=== PATIENT | female | born 1935 | race Caucasian/White ===

== ENCOUNTER → 2016-08-20 | Outpatient (CLI) | payer MEDICARE, OTHER ==
[2014-03-14 11:38] VITALS: BP 115/78
[~2016-08-20] MED LIST: AMLO10TA2 PO; ATEN50TA PO; BENA1TAB6 PO; CLON0.2T PO; CYAN10002 IJ; CYAN10005 PO; DOCU-27 PO; HYDR-2762 PO; ONDA8TAB9 PO; VIT1CAPS11 PO
--- NOTE | 2016-08-20 10:24 | RAD ---
EXAM: Dual modality PET/CT. HISTORY: Lung cancer restaging. TECHNIQUE: PET images of the body from the skull base to the proximal thighs were obtained approximately 60 minutes following the intravenous administration of 13.18 mCi F-[address] images were obtained for attenuation correction purposes. The blood glucose level prior to contrast administration was 76 mg/dl. One or more of the following individualized dose reduction techniques were utilized for this examination: 1. Automated exposure control. 2. Adjustment of the mA and/or kV according to patient size. 3. Use of iterative reconstruction technique. COMPARISON: 02/20/2016. FINDINGS: There is mild increased radiotracer activity within maximum SUV of 2.9 within the right suprahilar bandlike consolidation containing air bronchograms, stable compared to the prior study. There is increased radiotracer activity with a maximum SUV of 6.6 within a 1.5 cm right thyroid nodule, previously demonstrating a maximum SUV of 6.2. There is increased tracer tracer activity within the right shoulder girdle musculature, likely physiologic given the absence of a CT correlate. There is physiologic activity within the bowel and renal collecting system. The CT portion of the exam demonstrates stable right suprahilar bandlike consolidation containing air bronchograms. There is stable linear scarring within the lateral left upper lobe. There is a stable 2 mm pleural-based nodular opacity within the right upper lobe. There is emphysema. There is no pneumothorax or pleural effusion. There is cardiomegaly with coronary artery atherosclerosis and calcification of the aortic valve. No pathologically enlarged lymph node is seen. There is an enlarged thyroid and 1.5 cm right thyroid nodule. There is cerebral volume loss with compensatory enlargement of the ventricles and evidence of chronic small vessel disease within the cerebral white matter. There is severe mucosal thickening involving the sphenoid sinus. There is an ectatic aortic arch. There is a small hiatal hernia. No hepatic lesion is seen. The gallbladder is unremarkable. There are a few pancreatic calcifications likely due to chronic pancreatitis. The spleen is unremarkable. No adrenal gland lesion is seen. There is a 2 cm hypodense lesion within the lower pole of the left kidney, likely a cyst. There is colonic diverticulosis without evidence of diverticulitis. There is no evidence of bowel obstruction. There is a tortuous atherosclerotic abdominal aorta and iliac bifurcation. There is a diverticulum along the right aspect of the urinary bladder. There are advanced degenerative changes throughout the spine. There is a sclerotic lesion within the left femoral intertrochanteric region, possibly due to a bone infarct. No new suspicious lytic or sclerotic osseous lesion is seen. IMPRESSION: 1. Stable mild increased radiotracer activity with a maximum SUV of 2.9 within right suprahilar bandlike consolidation containing air bronchograms. The stability and degree of right tracer activity favor post radiation change right than recurrent or residual neoplasm. Continued follow-up is indicated. 2. Slight interval increase in a radiotracer avid right thyroid nodule with a maximum SUV of 6.6. This can be better assessed sonographically. 3. Stable tiny pleural-based nodular and linear opacities within both lungs, likely benign. 4. Emphysema. 5. Cardiomegaly with coronary artery atherosclerosis and calcification of the aortic valve. 6. Pancreatic calcifications likely due to the sequela of chronic pancreatitis. 7. Hypodense lesion within the lower pole of the left kidney, likely a cyst. 8. Colonic diverticulosis. 9. Please refer to the above report for additional findings regarding the non-PET portion of the exam.
== END | disposition home or self-care (01) ==
LOC: PETSC 07:30
PROVIDERS: ATTEND Internal Medicine Hematology & Oncology
DX: C34.10 Malignant neoplasm of upper lobe, unspecified bronchus or lung (principal); I25.10 Atherosclerotic heart disease of native coronary artery without angina pectoris; I70.0 Atherosclerosis of aorta; I51.7 Cardiomegaly; E04.9 Nontoxic goiter, unspecified; K44.9 Diaphragmatic hernia without obstruction or gangrene; J43.9 Emphysema, unspecified; L98.8 Other specified disorders of the skin and subcutaneous tissue; K57.30 Diverticulosis of large intestine without perforation or abscess without bleeding; K85.90 Acute pancreatitis without necrosis or infection, unspecified; N28.9 Disorder of kidney and ureter, unspecified
CPT/HCPCS: 78815; A9552

== ENCOUNTER → 2017-03-04 | Outpatient (CLI) | payer MEDICARE, OTHER ==
[2014-03-14 11:38] VITALS: BP 115/78
[~2017-03-04] MED LIST changes: +DOCU-109 PO; -DOCU-27 PO
--- NOTE | 2017-03-05 16:56 | RAD ---
EXAM: PET/CT SKULL BASE TO MID THIGH. HISTORY: Restaging right lung carcinoma status post completion of chemoradiation approximately 2 years ago. COMPARISON: Multiple prior PET/CT examinations with most recent generator 2016 and 02/20/2016.. TECHNIQUE: CT was performed from the skull base through the mid thighs for the purposes of attenuation correction. 14.1 mCi F-18 fluorodeoxyglucose (FDG) was administered intravenously. After an uptake period, positron emission tomography was performed from the skull base through the mid thighs. The PET and CT data were fused and interpreted in combination a dedicated workstation. Blood glucose level was 124 mg/dL at the time of FDG administration. Findings: Head/neck: There is a 1.0 cm hypodense nodule in the inferior right thyroid gland with persistent FDG activity with maximum SUV of 6.1, previously 6.2. No hypermetabolic lymphadenopathy in this region. Chest: Right upper lobe volume loss with right suprahilar consolidation and bronchiectasis with contiguous soft tissue extension into the right lex compatible with postradiation fibrosis which demonstrates mild low level FDG uptake with maximum SUV of 2.8, previously 2.9. No suspicious hypermetabolic mass or lymphadenopathy in this region. Abdomen and pelvis: There is physiologic activity in both kidneys and urinary bladder. There is patchy increased FDG uptake throughout the large bowel, may be physiologic. Musculoskeletal: No suspicious focal FDG uptake. Uncorrected PET images: No additional finding. Noncontrast low-dose CT findings: Coronary artery and aortic valve leaflet calcifications. Stable small right renal cysts. Tortuosity of the abdominal aorta with heavy aortoiliac calcified atheromatous disease with luminal patency not assessed due to lack of intravenous contrast. Moderate distal clonic diverticulosis without evidence for diverticulitis. Impression: 1. Unchanged low level metabolic activity within the right upper lobe consolidation compatible with postradiation fibrosis, though early recurrent neoplasm cannot be excluded. 2. Stable 1.0 cm right thyroid nodule with hypermetabolic activity, unchanged since 2013, indeterminate. Dedicated thyroid ultrasound is recommended, if not already performed. 3. No hypermetabolic lymphadenopathy in the neck, chest, abdomen or pelvis.
== END | disposition home or self-care (01) ==
LOC: PETSC 07:21
PROVIDERS: ATTEND Internal Medicine Hematology & Oncology
DX: C34.10 Malignant neoplasm of upper lobe, unspecified bronchus or lung (principal)
CPT/HCPCS: 78815; A9552

== ENCOUNTER → 2017-09-16 | Outpatient (CLI) | payer MEDICARE, OTHER | END | disposition home or self-care (01) | LOC: PETSC 07:21 | DX: C34.91 Malignant neoplasm of unspecified part of right bronchus or lung (principal); C54.1 Malignant neoplasm of endometrium; D64.9 Anemia, unspecified; K57.30 Diverticulosis of large intestine without perforation or abscess without bleeding | CPT/HCPCS: 78815; A9552 ==

== ENCOUNTER 2017-09-25 14:03 | Inpatient (IN) | payer MEDICARE, OTHER ==
[2017-09-25 15:55] LABS: ADD MAN DIFF? NO
[2017-09-25 16:02] LABS: BASO # 0.1 x10^3/uL (0.0-0.2); BASO % 1 % (0-3); EOS % 0 % (0-3); HEMATOCRIT 34.8 % (36.0-47.0); HEMOGLOBIN 11.7 g/dL (12.0-15.5); LYMPH # 0.9 x10^3/uL (1.0-4.8); LYMPH % 9 % (24-48); MEAN CORPUSCULAR HEMOGLOBIN 33 pg (25-35); MEAN CORPUSCULAR HGB CONC 34 g/dL (31-37); MEAN CORPUSCULAR VOLUME 98 fL (79-100); MONO # 0.7 x10^3/uL (0.0-1.1); MONO % 7 % (0-9); NEUT # 8.1 x10^3uL (1.8-7.7); NEUT % 83 % (31-73); PLATELET COUNT 227 x10^3/uL (140-400); RED BLOOD COUNT 3.56 x10^6/uL (3.50-5.40); RED CELL DISTRIBUTION WIDTH 13.3 % (11.5-14.5); WHITE BLOOD COUNT 9.7 x10^3/uL (4.0-11.0)
[2017-09-25 16:11] LABS: ANION GAP 12 (6-14); BLOOD UREA NITROGEN 35 mg/dL (7-20); BUN/CREATININE RATIO 25 (6-20); CALCIUM 9.5 mg/dL (8.5-10.1); CARBON DIOXIDE 23 mmol/L (21-32); CHLORIDE 101 mmol/L (98-107); CREATININE 1.4 mg/dL (0.6-1.0); GFR 35.8; GLUCOSE 109 mg/dL (70-99); POTASSIUM 4.4 mmol/L (3.5-5.1); SODIUM 136 mmol/L (136-145)
[2017-09-25 16:17] LABS: ALBUMIN 3.8 g/dL (3.4-5.0); ALBUMIN/GLOBULIN RATIO 0.9 (1.0-1.7); ALK PHOS 102 U/L (46-116); ALT (SGPT) 13 U/L (14-59); AST (SGOT) 15 U/L (15-37); MAGNESIUM 1.8 mg/dL (1.8-2.4); TOTAL BILIRUBIN 0.7 mg/dL (0.2-1.0); TOTAL PROTEIN 7.9 g/dL (6.4-8.2)
[2017-09-25 16:18] LABS: TROPONINI < 0.017 ng/mL (0.000-0.055)
[2017-09-25 16:26] LABS: CKMB MASS 0.9 ng/mL (0.0-3.6); CREATINE KINASE 88 U/L (26-192)
[2017-09-25 16:36] LABS: D-DIMER 1.74 ug/mlFEU (0.00-0.50)
[2017-09-25] MEDS: IV NORMAL SALINE 1000ML BAG 1,000 ML IV (17:37)
[2017-09-25] MEDS ORDERED: fentaNYL PF VIAL 100 MCG/2 ML VIAL IV (17:45)
[2017-09-25] MEDS ORDERED: ONDANSETRON PF 4 MG/2 ML VIAL. IV (17:45)
[2017-09-25] MEDS: ACETAMINOPHEN 325 MG TABLET. PO (20:34)
[2017-09-25] MEDS: IPRATRPIUM/ALBUTEROL 0.5/2.5MG 3 ML NEBU. NEB (20:44)
[2017-09-25 22:19] LABS: TROPONINI < 0.017 ng/mL (0.000-0.055)
[2017-09-26] MEDS: IV NORMAL SALINE 1000ML BAG 1,000 ML IV ×2 (03:37→13:37)
[2017-09-26 04:51] LABS: ADD MAN DIFF? NO
[2017-09-26 04:54] LABS: BASO % 0 % (0-3); EOS % 0 % (0-3); HEMATOCRIT 30.8 % (36.0-47.0); HEMOGLOBIN 10.5 g/dL (12.0-15.5); LYMPH # 1.2 x10^3/uL (1.0-4.8); LYMPH % 15 % (24-48); MEAN CORPUSCULAR HEMOGLOBIN 34 pg (25-35); MEAN CORPUSCULAR HGB CONC 34 g/dL (31-37); MEAN CORPUSCULAR VOLUME 98 fL (79-100); MONO # 0.9 x10^3/uL (0.0-1.1); MONO % 11 % (0-9); NEUT # 6.1 x10^3uL (1.8-7.7); NEUT % 74 % (31-73); PLATELET COUNT 201 x10^3/uL (140-400); RED BLOOD COUNT 3.14 x10^6/uL (3.50-5.40); RED CELL DISTRIBUTION WIDTH 13.6 % (11.5-14.5); WHITE BLOOD COUNT 8.2 x10^3/uL (4.0-11.0)
[2017-09-26 05:20] LABS: ANION GAP 11 (6-14); BLOOD UREA NITROGEN 33 mg/dL (7-20); CALCIUM 9.2 mg/dL (8.5-10.1); CARBON DIOXIDE 24 mmol/L (21-32); CHLORIDE 105 mmol/L (98-107); CREATININE 1.4 mg/dL (0.6-1.0); GFR 35.8; GLUCOSE 102 mg/dL (70-99); POTASSIUM 4.4 mmol/L (3.5-5.1); SODIUM 140 mmol/L (136-145)
[2017-09-26 05:39] LABS: TROPONINI < 0.017 ng/mL (0.000-0.055)
[2017-09-26] MEDS: ACETAMINOPHEN 325 MG TABLET. PO (06:33)
[2017-09-26] MEDS: IPRATRPIUM/ALBUTEROL 0.5/2.5MG 3 ML NEBU. NEB ×2 (08:15→11:59)
[2017-09-26] MEDS ORDERED: ALBUTEROL SULFATE 2.5 MG/3 ML NEBU. NEB (12:15)
[2017-09-26] MEDS ORDERED: HYDROcodone/APAP 7.5/325MG 1 TAB TABLET PO (14:00)
[2017-09-26] MEDS: LIDOCAINE (700MG/PATCH) PATCH. TD (14:11)
[2017-09-26] MEDS: amLODIPine BESYLATE 10 MG TABLET PO (14:42)
[2017-09-26] MEDS: CYANOCOBALAMIN (VITAMIN B-12) 1,000 MCG TABLET. PO (14:42)
[2017-09-26] MEDS ORDERED: MULTIVITAMIN I-VITE TABLET. PO (15:00)
[2017-09-26] MEDS ORDERED: cloNIDine HCL 0.2 MG TABLET PO (21:00)
[2017-09-26] MEDS ORDERED: METOPROLOL TART IMMED RELEASE 50 MG TABLET. PO (21:00)
[2017-09-26] MEDS ORDERED: DOCUSATE SODIUM 100 MG CAPSULE. PO (21:00)
[2017-09-27] MEDS ORDERED: LISINOPRIL 20 MG TABLET PO (09:00)
[2017-09-27] MEDS ORDERED: FERROUS SULFATE 325 MG TABLET. PO (09:00)
[2017-09-27] MEDS ORDERED: hydroCHLOROthiazide 12.5 MG CAPSULE PO (09:00)
== END 2017-09-26 14:50 | disposition home or self-care (01) | DRG 313 ==
LOC: ER 14:03 → 2 NORTH 17:13
DX: R07.89 Other chest pain (principal); J44.9 Chronic obstructive pulmonary disease, unspecified; M41.9 Scoliosis, unspecified; I10 Essential (primary) hypertension; Z96.652 Presence of left artificial knee joint; R79.1 Abnormal coagulation profile; Z85.118 Personal history of other malignant neoplasm of bronchus and lung; Z85.828 Personal history of other malignant neoplasm of skin; Z86.19 Personal history of other infectious and parasitic diseases; Z87.891 Personal history of nicotine dependence; Z90.710 Acquired absence of both cervix and uterus; Z98.42 Cataract extraction status, left eye; Z98.41 Cataract extraction status, right eye; Z92.21 Personal history of antineoplastic chemotherapy; Z91.013 Allergy to seafood; Z90.49 Acquired absence of other specified parts of digestive tract
CPT/HCPCS: 36415; 71045; 78582; 80048; 80053; 82553; 83735; 84484; 85025; 85379; 93005; 94640; 96374; 99285-25; A9540; A9558; J7620

== ENCOUNTER → 2018-11-03 | Outpatient (CLI) | payer MEDICARE, OTHER ==
[2017-09-26 11:08] VITALS: BP 111/75
[~2018-11-03] MED LIST changes: -AMLO10TA2 PO; +AMLO10TA8 PO; +FERR325T72 PO; -HYDR-2762 PO; +HYDR-2765 PO; +LIDO700A39 TD; +OCUVITE SOFTGE1 EACH PO; -VIT1CAPS11 PO
--- NOTE | 2018-11-03 09:57 | RAD ---
FDG tumor localization scan, PET/CT, 11/03/2018: History: Follow-up lung cancer Following IV injection of 15.6 mCi of 18 F-FDG, imaging was performed from the skull base to the proximal thighs. The noncontrast CT component was performed for attenuation correction and anatomic localization purposes rather than for primary diagnosis. The patient's blood glucose level at the time of injection was 117 MG/DL. Comparison is made to a study from 09/16/2017. A moderate streaky opacity in the medial aspect of the right upper lobe appears unchanged on the CT component. There is low level FDG uptake within this process demonstrated a maximum SUV of 2.7, unchanged since the previous study. This may represent post radiation change/chronic inflammation. No new pulmonary abnormality is seen. No hypermetabolic mediastinal lesion is evident. There is a small focus of increased activity again noted in the right lobe of the thyroid gland. The maximum SUV is 5.5. This corresponds to a small nonspecific low-density nodule. This has been present on multiple previous studies. No new neck abnormality is seen. Normal GI tract and urinary tract activity is present in the abdomen and pelvis. No focus of abnormal abdominal or pelvic FDG uptake is seen. Incidental CT findings include the presence of extensive aortic calcific plaquing with a few scattered coronary artery calcifications. IMPRESSION: 1. Stable right upper lobe atelectasis/consolidation demonstrating low level FDG uptake. 2. A small hypermetabolic right thyroid nodule is again noted. 3. No new FDG/PET abnormality is detected.
== END | disposition home or self-care (01) ==
LOC: EDBD → PETSC 07:23
PROVIDERS: ATTEND Internal Medicine Hematology & Oncology
DX: C34.81 Malignant neoplasm of overlapping sites of right bronchus and lung (principal); E04.1 Nontoxic single thyroid nodule; J98.11 Atelectasis
CPT/HCPCS: 78815; A9552

== ENCOUNTER → 2021-02-17 | Outpatient (CLI) | payer MEDICARE, OTHER ==
[2017-09-26 11:08] VITALS: BP 111/75
[~2021-02-17] MED LIST changes: +AMLO-187 PO; -AMLO10TA8 PO; +CYAN-25 PO; -CYAN10005 PO; +LIDO700A21 TD; -LIDO700A39 TD
--- NOTE | 2021-02-17 15:50 | RAD ---
EXAM: Bilateral screening mammogram. HISTORY: 85-year-old female presents for screening mammography. TECHNIQUE: Full-field digital craniocaudal and mediolateral oblique views of both breasts are obtaine d for evaluation. Computer aided detection was applied. COMPARISON: There is no recent mammogram for comparison. This exam serves as a new baseline mammogram . BREAST PARENCHYMAL DENSITY: Level C - Heterogeneously dense FINDINGS: There is a circumscribed nodular density within the medial aspect of the left breast at ant erior to mid depth in the craniocaudal projection. There is no convincing correlate in the mediolater al oblique projection. There are multiple benign calcifications and areas of benign asymmetry within both breasts. IMPRESSION: BI-RADS Category 0: Incomplete. Additional imaging needed. RECOMMENDATION: Further evaluation with a full-field true lateral view and spot compression craniocau carmen view of the left breast and left breast sonogram is recommended to assess nodularity within the m edial breast at anterior to mid depth. If your mammogram demonstrates that you have dense breast tissue, which could hide abnormalities, and if you have other risk factors for breast cancer that have been identified, you might benefit from s upplemental screening tests that may be suggested by your ordering physician. Dense breast tissue, i n and of itself, is a relatively common condition. This information is not provided to cause undue c oncern, but rather to raise your awareness and to promote discussion with your physician regarding th e presence of other risk factors, in addition to dense breast tissue. A report of your mammography re sults will be sent to you and your physician. You should contact your physician if you have any ques tions or concerns regarding this report. Mammography is a sensitive method for finding small breast cancers, but it does not detect them all a nd is not a substitute for careful clinical examination. A negative mammogram does not negate a clin ically suspicious finding and should not result in delay in biopsying a clinically suspicious abnorma lity. PQRS compliance statement - Patient information was entered into a reminder system with a target due date for the next mammogram. "Our facility is accredited by the [employer] Mammography Program." Electronically signed by: Sommer Persaud MD (02/17/2021 3:48 PM) [id number]
== END ==
LOC: EDBD 14:00 → MAMMO 14:00
PROVIDERS: ATTEND Family Medicine
DX: Z12.31 Encounter for screening mammogram for malignant neoplasm of breast (principal)
CPT/HCPCS: 77067

== ENCOUNTER → 2021-02-19 | Outpatient (CLI) | payer MEDICARE, OTHER ==
[2017-09-26 11:08] VITALS: BP 111/75
--- NOTE | 2021-02-19 13:16 | RAD ---
EXAM: Chest, 2 views. HISTORY: Shortness of breath. COMPARISON: 09/25/2017 FINDINGS: 2 views of the chest are obtained. There is stable right suprahilar linear right suprahilar opacity and architectural distortion. There is a stable prominent cardiac silhouette. There is no in filtrate or pleural effusion. There is no pneumothorax. There is hyperinflation likely due to emphyse ma. IMPRESSION: 1. Stable linear right suprahilar opacity and architectural distortion likely due to post treatment c hanges in this patient with a history of lung cancer. 2. Emphysema. 3. Cardiomegaly. Electronically signed by: Sommer Persaud MD (02/19/2021 1:14 PM) [id number]
--- NOTE | 2021-02-19 14:20 | RAD ---
EXAM: Left breast diagnostic mammogram; left breast sonogram. HISTORY: 85-year-old female presents for evaluation of nodularity within the left breast demonstrated on a screening mammogram dated 02/17/2021. TECHNIQUE: Full-field digital true lateral and spot compression craniocaudal views of the left breast are obtained. Sonographic imaging of the left breast targeted to the site of mammographic nodularity was also performed. COMPARISON: 02/17/2021 BREAST PARENCHYMAL DENSITY: Level C - Heterogeneously dense. FINDINGS: There is a persistent circumscribed nodule within the 7:00 position of the left breast at a nterior to mid depth with additional mammographic views. No associated calcification or architectural distortion is seen. Sonographic imaging of the left breast demonstrates a 4 mm hypoechoic lesion with internal echoes at the 7:00 position 5 cm from nipple, corresponding with the size and location of the mammographic nodu le of concern. The sonographic appearance favors a complicated cyst or benign fibrocystic etiology. IMPRESSION: 1. 4 mm benign-appearing complicated cyst or fibrocystic lesion at the 7:00 position of the left bee st 5 cm from the nipple. 2. BI-RADS Category 3: Probably benign finding(s). Short term follow up with a left breast sonogram i n 6 months is recommended to confirm stability. if your mammogram demonstrates that you have dense breast tissue, which could hide abnormalities, and if you have other risk factors for breast cancer that have been identified, you might benefit from s upplemental screening tests that may be suggested by your ordering physician. Dense breast tissue, i n and of itself, is a relatively common condition. This information is not provided to cause undue c oncern, but rather to raise your awareness and to promote discussion with your physician regarding th e presence of other risk factors, in addition to dense breast tissue. A report of your mammography re sults will be sent to you and your physician. You should contact your physician if you have any ques tions or concerns regarding this report. Mammography is a sensitive method for finding small breast cancers, but it does not detect them all a nd is not a substitute for careful clinical examination. A negative mammogram does not negate a clin ically suspicious finding and should not result in delay in biopsying a clinically suspicious abnorma lity. PQRS compliance statement - Patient information was entered into a reminder system with a target due date for the next mammogram. "Our facility is accredited by the [employer] Mammography [employer]." Electronically signed by: Sommer Persaud MD (02/19/2021 2:18 PM) [id number]
== END ==
LOC: MAMMO 12:55
PROVIDERS: ATTEND Family Medicine
DX: J43.9 Emphysema, unspecified (principal); I51.7 Cardiomegaly
CPT/HCPCS: 71046; 76641; 77065

== ENCOUNTER → 2021-03-05 | Outpatient (CLI) | payer MEDICARE, OTHER ==
[2017-09-26 11:08] VITALS: BP 111/75
[2021-03-05 14:12] LABS: BASO % 1 % (0-3); EOS # 0.1 x10^3/uL (0.0-0.7); EOS % 1 % (0-3); HEMATOCRIT 33.6 % (36.0-47.0); HEMOGLOBIN 11.2 g/dL (12.0-15.5); LYMPH # 1.2 x10^3/uL (1.0-4.8); LYMPH % 19 % (24-48); MEAN CORPUSCULAR HEMOGLOBIN 33 pg (25-35); MEAN CORPUSCULAR HGB CONC 33 g/dL (31-37); MEAN CORPUSCULAR VOLUME 99 fL (79-100); MONO # 0.4 x10^3/uL (0.0-1.1); MONO % 6 % (0-9); NEUT # 4.6 x10^3/uL (1.8-7.7); NEUT % 74 % (31-73); PLATELET COUNT 231 x10^3/uL (140-400); WHITE BLOOD COUNT 6.2 x10^3/uL (4.0-11.0)
[2021-03-05 14:29] LABS: CALCIUM 9.7 mg/dL (8.5-10.1); CREATININE 1.8 mg/dL (0.6-1.0); GFR 26.6; POTASSIUM 4.9 mmol/L (3.5-5.1)
[2021-03-05 14:35] LABS: ALBUMIN 3.9 g/dL (3.4-5.0); TOTAL BILIRUBIN 0.4 mg/dL (0.2-1.0)
[2021-03-05 14:44] LABS: FREE T4 1.12 ng/dL (0.76-1.46); THYROID STIM HORMONE (TSH) 0.732 uIU/mL (0.358-3.74)
== END ==
LOC: ONCLAB 13:24
PROVIDERS: ATTEND Internal Medicine Hematology & Oncology
DX: Z85.850 Personal history of malignant neoplasm of thyroid (principal)
CPT/HCPCS: 36415; 80053; 84439; 84443; 85025; 86800

== ENCOUNTER → 2021-03-19 | Outpatient (CLI) | payer MEDICARE, OTHER ==
[2017-09-26 11:08] VITALS: BP 111/75
[~2021-03-19] MED LIST changes: +IOHEXOL 240 MG/ML 50ML VIAL. PO ONE
--- NOTE | 2021-03-19 17:05 | RAD ---
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 Instr uctions: / History: Comparison: None. Technique: Multiple grayscale and color Doppler images of the thyroid gland were obtained. Findings: Right thyroid lobe: 5.3 x 1.7 x 2.2 cm. Heterogeneous echotexture. Left thyroid lobe: 4.2 x 1.9 x 1.7 cm. Heterogeneous echotexture. Isthmus: 0.5 cm. -Right superior thyroid spongiform nodule measures 0.9 x 0.8 x 0.5 cm. TI-RADS 2. -Solid hypoechoic right superior thyroid nodule measures 1.0 x 1.1 x 0.7 cm. TI-RADS 4 -Solid isoechoic left superior thyroid nodule measures 0.7 x 0.8 x 0.6 cm. TI-RADS 3. Solid hypoechoic left lateral thyroid nodule measures 1.1 x 0.9 x 0.7 cm with punctate calcifications . TI-RADS 5. ACR Thyroid Imaging, Reporting And Data System (TI-RADS): White Paper Of The ACR TI-RADS Committee. J ournal of the [employer], volume 14, issue 5, pages 587-595 (December 2016). IMPRESSION: 1. TI-RADS 5 left inferior thyroid nodule. Recommend further evaluation as clinically warranted with treatment or fine needle aspiration if indicated. Comparison with more recent prior examinations wou ld be of benefit. 2. Additional TI-RADS 3 and TI-RADS 4 thyroid nodules. 3. Diffusely heterogeneous thyroid, may relate to prior treatment. Electronically signed by: Ulises Bartlett DO (03/19/2021 5:03 PM) [id number]
--- NOTE | 2021-03-19 17:35 | RAD ---
EXAM: CT OF THE CHEST, ABDOMEN AND PELVIS WITH CONTRAST. HISTORY: Lung cancer. TECHNIQUE: Computed tomography of the chest, abdomen and pelvis was performed after the intravenous a dministration of iodinated contrast. One or more of the following individualized dose reduction techn iques were utilized for this examination: 1. Automated exposure control. 2. Adjustment of the mA and/or kV according to patient size. 3. Use of iterative reconstruction technique. COMPARISON: 11/03/2018. FINDINGS: Bone windows reveal no suspicious lesions. A sclerotic focus lesion within the left intertr ochanteric femur is stable chronically. There is a moderate thoracolumbar levoscoliosis. There are no pathologically enlarged mediastinal or axillary lymph nodes. There is no pleural or lashawn cardial effusion. The heart is not enlarged. There are calcifications of the aortic valve coronary ar teries. Postradiation fibrosis is again noted within the right upper lobe and suprahilar distribution. An unc alcified nodule in the left lower lobe on image 44 measures 6 x 5 mm and is stable. Several additiona l tiny pulmonary nodules measure 4 mm or less. All are stable. No new nodules are seen. The liver, pancreas, spleen, gallbladder, and adrenal glands are unremarkable without contrast. Bilat eral renal cysts appear benign and measures up to 2 cm on the right. There are no pathologically enla rged lymph nodes. A cyst in the right adnexa measures 4.6 x 2.6 cm. This is slightly increased from 3.8 x 2.0 cm in 201 9. Sigmoid diverticulosis is moderate. The appendix is not inflamed. There is no small bowel obstruct ion. IMPRESSION: 1. Stable posttreatment changes in the right upper lobe. No evidence of recurrent or metastatic disea se. 2. Small pulmonary nodules measure 6 mm or less and are stable chronically. These are likely benign. 3. A 4.6 cm cystic lesion in the right adnexa consistent slowly since 2019. No pelvic ultrasound coul d further evaluate if there is persistent concern. 4. Aortic valve calcifications. Correlate for aortic stenosis. Electronically signed by: David Sesay MD (03/19/2021 5:33 PM) [id number]
== END ==
LOC: CT 14:28
PROVIDERS: ATTEND Internal Medicine Hematology & Oncology
DX: C44.42 Squamous cell carcinoma of skin of scalp and neck (principal); R91.8 Other nonspecific abnormal finding of lung field; K57.30 Diverticulosis of large intestine without perforation or abscess without bleeding; N28.1 Cyst of kidney, acquired; E04.2 Nontoxic multinodular goiter; J84.10 Pulmonary fibrosis, unspecified; I35.8 Other nonrheumatic aortic valve disorders; Z85.118 Personal history of other malignant neoplasm of bronchus and lung; Z85.850 Personal history of malignant neoplasm of thyroid
CPT/HCPCS: 71250; 74176; 76536; Q9966

== ENCOUNTER → 2021-05-09 | Outpatient (CLI) | payer MEDICARE, OTHER ==
[2017-09-26 11:08] VITALS: BP 111/75
--- NOTE | 2021-05-09 17:59 | RAD ---
CT scan of the abdomen and pelvis with oral contrast only 05/09/2021 CLINICAL HISTORY: Epigastric pain. TECHNIQUE: After the oral administration contrast only, contiguous, 5 mm axial sections were obtained through the abdomen and pelvis. One or more of the following individualized dose reduction techniques were utilized for this study: 1. Automated exposure control. 2. Adjustment of the mA and/or kV according to patient size. 3. Use of iterative reconstruction technique. FINDINGS: Comparison study is dated 03/19/2021. Images through the lung bases demonstrate mild cardiomegaly. A 4 mm nodular opacity is seen involving the right lower lobe which is unchanged. The liver, spleen, pancreas, and adrenal glands are within normal limits. Rounded low-attenuation les ions are seen involving both kidneys which measure 1 to 2 cm in size. These likely represent cysts. N o further imaging evaluation is recommended. Atherosclerotic calcification abdominal aorta is seen. The abdominal aorta tapers normally. The appen leighann is well-visualized and is within normal limits. The gallbladder is slightly contracted. No free f luid or free air is within the abdomen. There is no evidence of bowel obstruction. Images through the pelvis demonstrated the urinary bladder distended with urine. Calcifications are s een within the pelvis consistent with phleboliths. A 4.6 cm oval-shaped low-attenuation lesion is see n in the right adnexa, unchanged. This may represent a right ovarian cyst. No free fluid is noted. A moderate amount stool seen involving the rectum and sigmoid colon. Patient appears to be post hystere ctomy. Multiple diverticula are seen involving the sigmoid colon. No inflammatory changes are seen ad jacent fat. The osseous structures are unchanged. IMPRESSION: No acute abnormality is seen. Electronically signed by: Jonatan Head MD (05/09/2021 5:57 PM) [id number]
== END ==
LOC: CT 15:32
PROVIDERS: ATTEND Internal Medicine Hematology & Oncology
DX: R91.1 Solitary pulmonary nodule (principal); I51.7 Cardiomegaly; I70.0 Atherosclerosis of aorta; K57.30 Diverticulosis of large intestine without perforation or abscess without bleeding; N28.89 Other specified disorders of kidney and ureter; N83.8 Other noninflammatory disorders of ovary, fallopian tube and broad ligament; Z85.118 Personal history of other malignant neoplasm of bronchus and lung
CPT/HCPCS: 74176; Q9966